=== PATIENT | female | born 1990 | race Native Hawaiian/Other Pacific Islander ===

== ENCOUNTER 2017-08-10 20:40 | Inpatient (IN) | payer OTHER ==
[2017-08-10] MEDS ORDERED: Iohexol 240 (50 ml) PO STA (21:23)
[2017-08-10] MEDS ORDERED: Sodium Chloride 0.9% 1,000 ML IV ONE (21:23)
[2017-08-10 21:30] LABS: SQUAMOUS EPITHIAL 5 /hpf (0-5); URINE BACTERIA RARE (<OCC); URINE BILIRUBIN NEGATIVE (NEGATIVE); URINE BLOOD 2+ (NEGATIVE); URINE CLARITY Clear (Clear); URINE COLOR Yellow (YELLOW); URINE GLUCOSE (UA) NORMAL (Normal); URINE LEUKOCYTE ESTERASE NEG Leu/uL (Negative); URINE PROTEIN NEGATIVE (NEGATIVE); URINE UROBILINOGEN NORMAL mg/dL (0.2-1.0)
[2017-08-10 21:32] LABS: HCG,QUALITATIVE URINE NEGATIVE (NEGATIVE)
[2017-08-10] MEDS ORDERED: Sodium Chloride 0.9% 1,000 ML ONE (21:53)
[2017-08-10] MEDS ORDERED: Iohexol 240 (50 ml) ONE (21:53)
[2017-08-10 21:55] LABS: BASO % 0.4 % (0.0-2.0); EOS # 0.1 K/uL (0.0-0.7); EOS % 1.4 % (0.0-4.0); HEMOGLOBIN 13.1 g/dL (11.0-16.0); LYMPH # 2.5 K/uL (1.0-4.3); LYMPH % 33.3 % (20.0-40.0); MEAN CELL VOLUME 90.8 fL (81.0-99.0); MEAN CORPUSCULAR HGB CONC 34.1 g/dL (33.0-37.0); MONO # 0.6 K/uL (0.0-0.8); MONO % 7.3 % (0.0-10.0); NEUT # 4.4 K/uL (1.8-7.0); NEUT % 57.6 % (50.0-75.0); RBC 4.22 Mil/uL (3.80-5.20); RED CELL DISTRIBUTION WIDTH 12.7 % (11.5-14.5); WHITE BLOOD COUNT 7.6 K/uL (4.8-10.8)
[2017-08-10] MEDS ORDERED: Iodixanol 320 MG/ML 100 ML BOTTLE IV ONE (21:57)
--- NOTE | 2017-08-10 22:03 | C.PDOC ---
History Of Present Illness 27 year old female presents to the ED for evaluation of mid-abdominal pain which began earlier today. Patient describes her pain is sharp and constant in nature. Patient was able to eat lunch normally. Patient took some Tylenol and had some tea without relief. She states her pain has become intense and it hurts to move/walk, so she presents for further evaluation. She denies fever, chills, nausea, vomiting, changes in urinary/bowel habits. Time Seen by Provider: 08/10/17 21:18 Chief Complaint (Nursing): Abdominal Pain History Per: Patient History/Exam Limitations: no limitations Onset/Duration Of Symptoms: Hrs, Other (constant ) Current Symptoms Are (Timing): Still Present Location Of Pain/Discomfort: Other (mid-abdomen ) Radiation Of Pain To:: None Quality Of Discomfort: Sharp, "Pain" Associated Symptoms: denies: Fever, Chills, Nausea, Vomiting, Urinary Symptoms Additional History Per: Patient Abnormal Vaginal Bleeding: No Past Medical History Reviewed: Historical Data, Nursing Documentation, Vital Signs Vital Signs: Last Vital Signs Temp 97.7 F 08/10/17 21:06 Pulse 68 08/10/17 21:06 Resp 20 08/10/17 21:06 BP 115/77 08/10/17 21:06 Pulse Ox 100 08/10/17 22:06 - Medical History PMH: No Chronic Diseases Surgical History: No Surg Hx Family History: States: Unknown Family Hx - Social History Hx Alcohol Use: No Hx Substance Use: No - Immunization History Hx Tetanus Toxoid Vaccination: No Hx Influenza Vaccination: Yes Hx Pneumococcal Vaccination: No Review Of Systems Constitutional: Negative for: Fever, Chills Gastrointestinal: Positive for: Abdominal Pain. Negative for: Nausea, Vomiting Genitourinary: Negative for: Dysuria, Hematuria Physical Exam - Physical Exam Appears: Non-toxic, No Acute Distress Skin: Normal Color, Warm, Dry Head: Atraumatic, Normacephalic Eye(s): bilateral: Normal Inspection Oral Mucosa: Moist Neck: Supple Chest: Symmetrical, No Deformity, No Tenderness Cardiovascular: Rhythm Regular, No Murmur Respiratory: Normal Breath Sounds, No Rales, No Rhonchi, No Wheezing Gastrointestinal/Abdominal: Bowel Sounds (active), Soft, Tenderness (to right lower periumbilical region ), No Guarding, No Rebound Extremity: Normal ROM, Capillary Refill (less than 2 seconds ) Neurological/Psych: Oriented x3, Normal Speech, Normal Cognition ED Course And Treatment - Laboratory Results Result Diagrams: 08/10/17 21:50 08/10/17 21:50 Lab Interpretation: No Acute Changes O2 Sat by Pulse Oximetry: 100 (on RA) Pulse Ox Interpretation: Normal Progress Note: Bloodwork, urinalysis, CT A/P ordered and reviewed. IV Fluids administered. Disposition - Disposition Disposition Time: 00:45 Condition: STABLE Forms: [facility] [facility] [employer] [facility] (Spanish) - Clinical Impression Clinical Impression: Abdominal pain - Scribe Statement The provider has reviewed the documentation as recorded by the Scribe (Eliza Tao) Provider Attestation: All medical record entries made by the Scribe were at my direction and personally dictated by me. I have reviewed the chart and agree that the record accurately reflects my personal performance of the history, physical exam, medical decision making, and the department course for this patient. I have also personally directed, reviewed, and agree with the discharge instructions and disposition. Physician Patient Turnover Patient Signed Over To: Elvin Mars Handoff Comments: pending CT results
[2017-08-10 22:13] LABS: ALB/GLOB RATIO 1.5 (1.0-2.1); ALBUMIN 4.3 g/dL (3.5-5.0); ALT/SGPT 17 U/L (9-52); AST/SGOT 40 U/L (14-36); BLOOD UREA NITROGEN 16 mg/dL (7-17); CALCIUM 8.1 mg/dl (8.6-10.4); GFR AFRICAN-AMERICAN > 60; GFR NON-AFRICAN AMERICAN > 60; LIPASE 61 U/L (23-300)
--- NOTE | 2017-08-11 01:25 | CT ---
EXAM: CT Abdomen and Pelvis With Intravenous Contrast CLINICAL HISTORY: 27 years old, female; Pain; Abdominal pain; Additional info: Abd pain TECHNIQUE: Axial computed tomography images of the abdomen and pelvis with intravenous contrast. All CT scans at this facility use one or more dose reduction techniques, viz.: automated exposure control; ma/kV adjustment per patient size (including targeted exams where dose is matched to indication; i.e. head); or iterative reconstruction technique. 594 images are submitted. Oral contrast was administered. Axial images are submitted in lung and soft tissue windows. Coronal and sagittal reformatted images were created and reviewed. Axial reformatted images were created and reviewed. CONTRAST: 100 mL of [id number] administered intravenously. COMPARISON: No relevant prior studies available. FINDINGS: Lung bases: Unremarkable. No mass. No consolidation. Mediastinum: Small hiatal hernia. ABDOMEN: Liver: Unremarkable. No mass. Gallbladder and bile ducts: Unremarkable. No ductal dilation. Pancreas: Unremarkable. No mass. No ductal dilation. Spleen: Unremarkable. No splenomegaly. Adrenals: Unremarkable. No mass. Kidneys and ureters: Unremarkable. No solid mass. No hydronephrosis. Stomach and bowel: Nonspecific gastric thickening likely due to under distention. Correlation with clinical data is recommended if gastritis is suspected. PELVIS: Appendix: The appendix demonstrates diffuse distention, consistent with acute appendicitis. The appendix measures 1.1 cm. no appendicoliths. Bladder: Unremarkable. Reproductive: Anteverted uterus. Bilateral ovarian follicles. ABDOMEN and PELVIS: Intraperitoneal space: Small amount of free pelvic fluid. No free air. Bones/joints: No acute fracture. No dislocation. Soft tissues: Asymmetric left breast tissue. Vasculature: Unremarkable. No abdominal aortic aneurysm. Lymph nodes: Multiple subcentimeter mesenteric and ileocolic lymph nodes. Findings are nonspecific but may represent mesenteric adenitis. IMPRESSION: 1. The appendix demonstrates diffuse distention, consistent with acute appendicitis. The appendix measures 1.1 cm. no appendicoliths. 2. Small amount of free pelvic fluid.
[2017-08-11] MEDS ORDERED: Piperacillin/Tazobact 3.375 gm 100 ML IVPB STA (01:33)
[2017-08-11] MEDS ORDERED: Piperacillin/Tazobact 3.375 gm 100 ML IVPB ONE (01:39)
[2017-08-11] MEDS ORDERED: metroNIDAZOLE IV 500 mg/100 ml 500 MG/100 ML BAG ONE (01:40)
[2017-08-11] MEDS ORDERED: metroNIDAZOLE IV 500 mg/100 ml 500 MG/100 ML BAG IVPB SCH (01:45)
[2017-08-11] MEDS ORDERED: metroNIDAZOLE IV 500 mg/100 ml 500 MG/100 ML BAG IVPB STA (01:50)
[2017-08-11] MEDS: Lactated Ringer's 1,000 ML IV SCH ×3 (03:13→22:13)
--- NOTE | 2017-08-11 06:02 | CP.PCM.HP ---
History of Present Illness - History of Present Illness History of Present Illness: CC: abdominal pain HPI: Patient is a 27 y/o female who presented with chirag-umbilical abdominal pain for the past 1 day. She described the pain as sharp and radiating to all quadrants of her abdomen. She denies having pain like this in the past. She denies associated n/v/f/c. She denies diarrhea or constipation. She states her LMP was July 25 and normal. She reports come relief of the pain with medication given to her in ER. PMH: denies PSH: denies Social: denies ETOH, tobacco, or drug use Present on Admission - Present on Admission Any Indicators Present on Admission: No Review of Systems - Review of Systems All systems: reviewed and no additional remarkable complaints except Review of Systems: unless stated in HPI Past Patient History - Infectious Disease Hx of Infectious Diseases: None - Past Medical History & Family History Past Medical History?: No - Past Social History Smoking Status: Never Smoked - MUSCULOSKELETAL/RHEUMATOLOGICAL Hx Falls: No - PSYCHIATRIC Hx Substance Use: No - SURGICAL HISTORY Hx Surgeries: No - ANESTHESIA Hx Anesthesia: No Meds Allergies/Adverse Reactions: Allergies Allergy/AdvReac Type Severity Reaction Status Date / Time No Known Allergies Allergy Verified 08/10/17 21:13 Physical Exam - Constitutional Appears: Non-toxic, No Acute Distress - Head Exam Head Exam: ATRAUMATIC, NORMOCEPHALIC - Eye Exam Eye Exam: EOMI, Normal appearance - ENT Exam ENT Exam: Mucous Membranes Moist - Respiratory Exam Respiratory Exam: NORMAL BREATHING PATTERN. absent: Respiratory Distress - Cardiovascular Exam Cardiovascular Exam: REGULAR RHYTHM. absent: Tachycardia - GI/Abdominal Exam GI & Abdominal Exam: Soft, Tenderness (RLA w/ deep palpation). absent: Distended, Guarding, Rebound, Rigid - Extremities Exam Extremities exam: Positive for: normal inspection. Negative for: calf tenderness - Neurological Exam Neurological exam: Alert, Oriented x3 - Psychiatric Exam Psychiatric exam: Normal Affect, Normal Mood - Skin Skin Exam: Dry, Normal Color, Warm Results - Vital Signs Recent Vital Signs: Last Vital Signs Temp 98.2 F 08/11/17 02:30 Pulse 54 L 08/11/17 02:30 Resp 20 08/11/17 02:30 BP 113/74 08/11/17 02:30 Pulse Ox 100 08/11/17 02:30 - Labs Result Diagrams: 08/10/17 21:50 08/10/17 21:50 Labs: Laboratory Results - last 24 hr 08/10/17 08/10/17 08/10/17 21:19 21:50 21:50 WBC 7.6 RBC 4.22 Hgb 13.1 Hct 38.3 MCV 90.8 MCH 31.0 MCHC 34.1 RDW 12.7 Plt Count 209 MPV 9.0 Neut % (Auto) 57.6 Lymph % (Auto) 33.3 [place] % (Auto) 7.3 Eos % (Auto) 1.4 Baso % (Auto) 0.4 Neut # (Auto) 4.4 Lymph # (Auto) 2.5 [place] # (Auto) 0.6 Eos # (Auto) 0.1 Baso # (Auto) 0.0 Sodium 138 Potassium 5.0 Chloride 101 Carbon Dioxide 26 Anion Gap 16 BUN 16 Creatinine 0.8 Est GFR ( Amer) > 60 Est GFR (Non-Af Amer) > 60 Random Glucose 71 Calcium 8.1 L Total Bilirubin 1.1 AST 40 H ALT 17 Alkaline Phosphatase 36 L Total Protein 7.3 Albumin 4.3 Globulin 2.9 Albumin/Globulin Ratio 1.5 Lipase 61 Urine Color Yellow Urine Clarity Clear Urine pH 5.0 Ur Specific [place] 1.017 Urine Protein Negative Urine Glucose (UA) Normal Urine Ketones Negative Urine Blood 2+ H Urine Nitrate Negative Urine Bilirubin Negative Urine Urobilinogen Normal Ur Leukocyte Esterase Neg Urine WBC (Auto) 2 Urine RBC (Auto) 1 Ur Squamous Epith Cells 5 Urine Bacteria Rare Urine HCG, Qual Negative - Imaging and Cardiology CT scan - abdomen Status: Image reviewed by me, Report reviewed by me (dilated 1/1cm appendix with mild inflammatory changes) Assessment & Plan - Assessment and Plan (Free Text) Assessment: 27 y/o female w/ abdominal pain and CT findings suggestive of acute appendicitis Plan: -plan for OR today -NPO -IVF -IV abx -pain medicine -zofran -ok to be OOB -SCDs -pending time of OR, patient could possibly be d/c'd this afternoon or early tomorrow morning -d/w Dr. Zack KIRBYrobby PGY3
[2017-08-11] MEDS: Piperacillin/Tazobact 3.375 GM in Sodium Chloride 100 ML IVPB SCH ×4 (07:35→20:39)
[2017-08-11] MEDS ORDERED: Lactated Ringer's 1,000 ML IV ONE ×2 (08:00→10:00)
[2017-08-11] MEDS ORDERED: Midazolam 2 MG/2 ML VIAL ONE (08:09)
[2017-08-11] MEDS ORDERED: Propofol 10 mg/ml Inj (20 ML) ONE (08:09)
[2017-08-11] MEDS ORDERED: Rocuronium 10 mg/ml (10 ml) ONE (09:02)
[2017-08-11] MEDS ORDERED: Succinylcholine Chloride 20 mg/ml Syr (5 ml) IV ONE (09:02)
--- NOTE | 2017-08-11 09:31 | PCM.SURG1 ---
Surgeon's Initial Post Op Note - Surgeon's Notes Surgeon: Dr. Dixon Aerospace Engineer: Dr. Casillas PGY2 Type of Anesthesia: General Endo Pre-Operative Diagnosis: Acute appendicitis Operative Findings: See operative dictation Post-Operative Diagnosis: Acute appendicitis Operation Performed: Laparoscopic appendectomy Specimen/Specimens Removed: Appendix Estimated Blood Loss: EBL {In ML}: 10 Blood Products Given: N/A Drains Used: No Drains Post-Op Condition: Good Date of Surgery/Procedure: 08/11/17 Time of Surgery/Procedure: :
[2017-08-11] MEDS: HYDROmorphone 0.5 mg/0.5 ml ISec IVP PRN ×2 (10:05→10:19)
--- NOTE | 2017-08-11 22:35 | OP ---
PROCEDURE DATE: 08/11/2017 SURGEON: Justo Dixon MD CARPENTER: . ANESTHESIA: General. PREOPERATIVE DIAGNOSIS: Acute appendicitis. POSTOPERATIVE DIAGNOSIS: Acute appendicitis. PROCEDURE: Laparoscopic appendectomy. DESCRIPTION OF OPERATION: With the patient in the supine position under adequate general anesthesia, the abdomen was prepped and draped in the usual manner. Veress needle puncture was performed at the umbilicus with insufflation to 15 cm of water pressure of CO2, and a 5-mm laparoscopic trocar was inserted via an infraumbilical incision. Under direct vision, an additional 5-mm trocar was inserted in the left lower quadrant, and a 12-mm trocar was inserted in the suprapubic midline. The appendix was identified. It was thickened and indurated and appeared acutely inflamed. The appendix was gently grasped and elevated and free from some overlying loops of small bowel. The mesoappendix was then dissected and divided with an Endo AMY stapler. The appendix itself was then divided with the second pass of the Endo AMY stapler. The stump was examined for hemostasis. The appendix was placed in a specimen retrieval bag and removed via the 12-mm port site. The right lower quadrant was suctioned. The pneumoperitoneum was released, and the trocars were removed. The 12-mm port site was closed with a [id number] fascial suture of 0 Vicryl. All incisions were closed with 4-0 Monocryl subcuticular sutures and Dermabond. The patient tolerated the procedure well and transferred to recovery room in stable condition. Estimated blood loss for the procedure was 10 mL. Justo Dixon MD
[2017-08-11] MEDS: Oxycodone/Acetaminophen 5/325 mg Tab PO PRN (22:54)
[2017-08-12] MEDS: Piperacillin/Tazobact 3.375 GM in Sodium Chloride 100 ML IVPB SCH ×2 (01:33→08:00)
[2017-08-12] MEDS: Oxycodone/Acetaminophen 5/325 mg Tab PO PRN (05:56)
[2017-08-12] MEDS: Lactated Ringer's 1,000 ML IV SCH ×2 (07:05→08:00)
--- NOTE | 2017-08-12 07:45 | CP.PCM.DIS ---
Provider - Provider Date of Admission: 08/11/17 01:41 Attending physician: Justo Dixon MD Time Spent in preparation of Discharge (in minutes): 45 Diagnosis - Discharge Diagnosis (1) Appendicitis Status: Resolved Hospital Course - Lab Results Lab Results: Most Recent Lab Values WBC 7.6 K/uL (4.8-10.8) 08/10/17 21:50 RBC 4.22 Mil/uL (3.80-5.20) 08/10/17 21:50 Hgb 13.1 g/dL (11.0-16.0) 08/10/17 21:50 Hct 38.3 % (34.0-47.0) 08/10/17 21:50 MCV 90.8 fL (81.0-99.0) 08/10/17 21:50 MCH 31.0 pg (27.0-31.0) 08/10/17 21:50 MCHC 34.1 g/dL (33.0-37.0) 08/10/17 21:50 RDW 12.7 % (11.5-14.5) 08/10/17 21:50 Plt Count 209 K/uL (130-400) 08/10/17 21:50 MPV 9.0 fL (7.2-11.7) 08/10/17 21:50 Neut % (Auto) 57.6 % (50.0-75.0) 08/10/17 21:50 Lymph % (Auto) 33.3 % (20.0-40.0) 08/10/17 21:50 [place] % (Auto) 7.3 % (0.0-10.0) 08/10/17 21:50 Eos % (Auto) 1.4 % (0.0-4.0) 08/10/17 21:50 Baso % (Auto) 0.4 % (0.0-2.0) 08/10/17 21:50 Neut # (Auto) 4.4 K/uL (1.8-7.0) 08/10/17 21:50 Lymph # (Auto) 2.5 K/uL (1.0-4.3) 08/10/17 21:50 [place] # (Auto) 0.6 K/uL (0.0-0.8) 05/30/18 21:50 Eos # (Auto) 0.1 K/uL (0.0-0.7) 08/10/17 21:50 Baso # (Auto) 0.0 K/uL (0.0-0.2) 08/10/17 21:50 Sodium 138 mmol/L (132-148) 08/10/17 21:50 Potassium 5.0 mmol/L (3.6-5.2) 08/10/17 21:50 Chloride 101 mmol/L (98-107) 08/10/17 21:50 Carbon Dioxide 26 mmol/L (22-30) 08/10/17 21:50 Anion Gap 16 (10-20) 08/10/17 21:50 BUN 16 mg/dL (7-17) 08/10/17 21:50 Creatinine 0.8 mg/dL (0.7-1.2) 08/10/17 21:50 Est GFR ( Amer) > 60 08/10/17 21:50 Est GFR (Non-Af Amer) > 60 08/10/17 21:50 Random Glucose 71 mg/dL (65-105) 08/10/17 21:50 Calcium 8.1 mg/dl (8.6-10.4) L 08/10/17 21:50 Total Bilirubin 1.1 mg/dL (0.2-1.3) 08/10/17 21:50 AST 40 U/L (14-36) H 08/10/17 21:50 ALT 17 U/L (9-52) 08/10/17 21:50 Alkaline Phosphatase 36 U/L (38-126) L 08/10/17 21:50 Total Protein 7.3 g/dL (6.3-8.3) 08/10/17 21:50 Albumin 4.3 g/dL (3.5-5.0) 08/10/17 21:50 Globulin 2.9 gm/dL (2.2-3.9) 08/10/17 21:50 Albumin/Globulin Ratio 1.5 (1.0-2.1) 08/10/17 21:50 Lipase 61 U/L (23-300) 08/10/17 21:50 Urine Color Yellow (YELLOW) 08/10/17 21:19 Urine Clarity Clear (Clear) 08/10/17 21:19 Urine pH 5.0 (5.0-8.0) 08/10/17 21:19 Ur Specific [place] 1.017 (1.003-1.030) 08/10/17 21:19 Urine Protein Negative mg/dL (NEGATIVE) 08/10/17 21:19 Urine Glucose (UA) Normal mg/dL (Normal) 08/10/17 21:19 Urine Ketones Negative mg/dL (NEGATIVE) 08/10/17 21:19 Urine Blood 2+ (NEGATIVE) H 08/10/17 21:19 Urine Nitrate Negative (NEGATIVE) 08/10/17 21:19 Urine Bilirubin Negative (NEGATIVE) 08/10/17 21:19 Urine Urobilinogen Normal mg/dL (0.2-1.0) 08/10/17 21:19 Ur Leukocyte Esterase Neg [place]/uL (Negative) 08/10/17 21:19 Urine WBC (Auto) 2 /hpf (0-5) 08/10/17 21:19 Urine RBC (Auto) 1 /hpf (0-3) 08/10/17 21:19 Ur Squamous Epith Cells 5 /hpf (0-5) 08/10/17 21:19 Urine Bacteria Rare (<OCC) 08/10/17 21:19 Urine HCG, Qual Negative (NEGATIVE) 08/10/17 21:19 - Hospital Course Hospital Course: This 27F was admitted to the hospital with right lower abdominal pain on . She was diagnosed with an acute appendicitis. She was taken to the OR for a laparoscopic appendectomy later that morning. She had an uneventful recover and is clear for discharge home. Discharge Exam - Head Exam Head Exam: ATRAUMATIC, NORMOCEPHALIC - Eye Exam Eye Exam: EOMI, Normal appearance - Respiratory Exam Respiratory Exam: NORMAL BREATHING PATTERN, UNREMARKABLE - Cardiovascular Exam Cardiovascular Exam: +S1, +S2 - GI/Abdominal Exam GI & Abdominal Exam: Soft. absent: Tenderness Additional comments: Surgical glue in place incisions well approximated non draining non tender - Neurological Exam Neurological exam: Alert, Oriented x3 - Psychiatric Exam Psychiatric exam: Normal Affect, Normal Mood - Skin Skin Exam: Dry, Intact Discharge Plan - Follow Up Plan Condition: STABLE Disposition: HOME/ ROUTINE Instructions: Acute Abdominal Pain (DC), Acute Abdominal Pain (GEN), Appendectomy, Laparoscopic Surgery, Appendectomy, Laparoscopic Surgery (DC) Additional Instructions: You may shower tomorrow however no soaking no hot tubs no swimming pools. No heavy lifting or core excersizes for a minimum of 4 weeks. If you develop any new or concerning symptoms please contact you PCP, Dr. Dixon or go to the ED. You have dissolvable stitches and surgical glue, do not pick at the glue it will eventually come off in the shower. For pain take motrin over the counter as directed on bottle, if it is not enough you may take tylenol in addition per the directions on the bottle.
[2017-08-12 08:14] VITALS: BP 113/72; PULSE 60; RESP 18; TEMP 98.3; O2SAT 100
[2017-08-13] MEDS ORDERED: Pneumococcal 23-Valent Vaccine IM ONE (14:00)
== END 2017-08-12 10:25 | disposition home or self-care (01) | DRG 883 ==
LOC: C.ER 20:40 → C.6T 08-11 01:41 → C.9S 08-11 10:28 → C.5S 08-11 11:01
PROVIDERS: ADMIT Specialist; ATTEND Specialist
PROC: 0DTJ4ZZ Resection of Appendix, Percutaneous Endoscopic Approach (ICD-10-PCS; principal; 2017-08-11 12:45)
DX: K35.80 Unspecified acute appendicitis (principal)

== ENCOUNTER 2017-12-21 01:18 | Emergency (ER) | payer OTHER ==
--- NOTE | 2017-12-21 01:35 | C.PDOC ---
History Of Present Illness 27 yo female presents to the ED complaining of chest pain that started yesterday around 3:00 PM. Patient then tried to fall asleep, and states she felt better. She then awoke and went to work, where she developed chest tightness and pressure-like sensation. Patient notes that she momentarily felt diaphoretic. Also reports burning sensation in her chest as well. No SOB. On arrival patient is speaking in complete sentences. She denies any fever, chills, cough, nausea, vomiting, dizziness, or palpitations. Time Seen by Provider: 12/21/17 01:34 Chief Complaint (Nursing): Chest Pain History Per: Patient History/Exam Limitations: no limitations Onset/Duration Of Symptoms: Hrs Current Symptoms Are (Timing): Still Present Severity: Moderate Pain Scale Rating Of: 4 Quality: Burning, Tightness, Pressure Associated Symptoms: Diaphoresis Exacerbating Factors: None Recent travel outside of the [place]: No Past Medical History Reviewed: Historical Data, Nursing Documentation, Vital Signs Surgical History: No Surg Hx - [facility] Procedures RESECTION OF APPENDIX, PERCUTANEOUS ENDOSCOPIC APPROACH (08/11/17) Family History: States: Unknown Family Hx - Social History Hx Tobacco Use: No Hx Alcohol Use: No Hx Substance Use: No - Immunization History Hx Tetanus Toxoid Vaccination: No Hx Influenza Vaccination: Yes Hx Pneumococcal Vaccination: No Review Of Systems Constitutional: Negative for: Fever, Chills ENT: Negative for: Nose Congestion Cardiovascular: Positive for: Chest Pain (pressure-like and burning sensation). Negative for: Palpitations Respiratory: Negative for: Cough, Shortness of Breath Gastrointestinal: Negative for: Nausea, Vomiting Neurological: Negative for: Weakness, Headache, Dizziness Physical Exam - Physical Exam Appears: Non-toxic, No Acute Distress Skin: Warm, Dry Head: Normacephalic Eye(s): bilateral: Normal Inspection Oral Mucosa: Moist Neck: Trachea Midline, Supple Chest: Symmetrical, No Deformity, No Tenderness Cardiovascular: Rhythm Regular Respiratory: No Rales, No Rhonchi, No Wheezing Gastrointestinal/Abdominal: Bowel Sounds (active), Soft, No Tenderness, No Distention Extremity: Bilateral: Atraumatic, Normal Color And Temperature, Normal ROM Pulses: Left Dorsalis Pedis: Normal, Right Dorsalis Pedis: Normal Neurological/Psych: Oriented x3 ED Course And Treatment - Laboratory Results Result Diagrams: 12/21/17 02:46 12/21/17 02:46 ECG: Interpreted By Me, Viewed By Me ECG Rhythm: Sinus Rhythm (58), Nonspecific Changes (occ pac's) O2 Sat by Pulse Oximetry: 98 (RA) Pulse Ox Interpretation: Normal Progress Note: Administered PO aspirin and IV Pepcid. Blood work and urine sent. EKG ordered and reviewed. Patient will be observed on threat monitoring analyst in the ED. Reevaluation Time: 05:22 Disposition Counseled Patient/Family Regarding: Studies Performed, Diagnosis, Need For Followup - Disposition Referrals: Stephane Mohr MD [Staff Provider] - Disposition: HOME/ ROUTINE Disposition Time: 01:45 Condition: FAIR Additional Instructions: Please return if symptoms recur Instructions: Chest Pain (DC) Forms: [employer] (Thai) - Clinical Impression Clinical Impression: Chest pain - Scribe Statement The provider has reviewed the documentation as recorded by the Scribe (Snoja Staley) Provider Attestation: All medical record entries made by the Scribe were at my direction and personally dictated by me. I have reviewed the chart and agree that the record accurately reflects my personal performance of the history, physical exam, medical decision making, and the department course for this patient. I have also personally directed, reviewed, and agree with the discharge instructions and disposition.
[2017-12-21] MEDS ORDERED: Aspirin 325 mg EC Tablets PO STA (02:23)
[2017-12-21 02:50] LABS: BASO % 0.5 % (0.0-2.0); EOS # 0.1 K/uL (0.0-0.7); EOS % 0.9 % (0.0-4.0); HEMOGLOBIN 12.7 g/dL (11.0-16.0); LYMPH # 2.1 K/uL (1.0-4.3); MEAN CELL VOLUME 91.3 fL (81.0-99.0); MEAN CORPUSCULAR HEMOGLOBIN 30.5 pg (27.0-31.0); MEAN CORPUSCULAR HGB CONC 33.4 g/dL (33.0-37.0); MONO # 0.4 K/uL (0.0-0.8); MONO % 5.4 % (0.0-10.0); NEUT # 5.4 K/uL (1.8-7.0); NEUT % 67.2 % (50.0-75.0); RBC 4.17 Mil/uL (3.80-5.20); RED CELL DISTRIBUTION WIDTH 12.7 % (11.5-14.5)
[2017-12-21 03:05] LABS: ALB/GLOB RATIO 1.7 (1.0-2.1); ALBUMIN 4.1 g/dL (3.5-5.0); ALT/SGPT 27 U/L (9-52); AST/SGOT 30 U/L (14-36); BLOOD UREA NITROGEN 12 mg/dL (7-17); CALCIUM 8.9 mg/dl (8.6-10.4); GFR NON-AFRICAN AMERICAN > 60; LIPASE 30 U/L (23-300)
[2017-12-21 03:11] LABS: PROTHROMBIN TIME 10.4 SECONDS (9.7-12.2)
[2017-12-21 03:17] LABS: B-TYPE NATRIURETIC PEPTIDE 253 pg/mL (0-450)
[2017-12-21 03:29] VITALS: PULSE 54
[2017-12-21] MEDS ORDERED: Sodium Chloride 0.9% 1,000 ML IV ONE (04:05)
[2017-12-21] MEDS ORDERED: Sodium Chloride 0.9% 1,000 ML ONE (04:30)
[2017-12-21 05:33] VITALS: BP 115/76; RESP 14; TEMP 98; O2SAT 100
--- NOTE | 2017-12-23 15:02 | CARD ---
APPROVED REPORT Date of service: 12/21/2017 EKG Measurement Heart [id number] <Conclusion> Sinus bradycardia with premature atrial complexes Otherwise normal ECG
== END 2017-12-21 05:33 | disposition home or self-care (01) ==
LOC: C.ER 01:18
DX: R07.9 Chest pain, unspecified (principal)
CPT/HCPCS: 80053; 83690; 83880; 84484; 84703; 85025; 85610; 85730; 93005; 96361; 96374; 99285; J7030

== ENCOUNTER 2018-02-04 23:17 | Emergency (ER) | payer OTHER ==
[2018-02-04 23:34] VITALS: BP 105/68; PULSE 81; RESP 19; TEMP 98; O2SAT 97
--- NOTE | 2018-02-04 23:51 | C.PDOC ---
History Of Present Illness 27 year old female presents to ED with complaints of pain to buttocks on right side after she slipped and fell when getting out of bathtub. Patient reports she is 8 weeks and had no injury to abdomen or any bleeding. She did not take any medicine and came straight to ED. - HPI Time Seen by Provider: 02/04/18 23:37 Chief Complaint (Nursing): Trauma History Per: Patient History/Exam Limitations: no limitations Onset/Duration Of Symptoms: Sudden Onset Location Of Injury: Right: Buttock Past Medical History Reviewed: Historical Data, Nursing Documentation, Vital Signs Vital Signs: Last Vital Signs Temp 98 F 02/04/18 23:21 Pulse 81 02/04/18 23:21 Resp 19 02/04/18 23:21 BP 105/68 02/04/18 23:21 Pulse Ox 97 02/04/18 23:21 - Medical History PMH: No Chronic Diseases Surgical History: Appendectomy - [facility] Procedures RESECTION OF APPENDIX, PERCUTANEOUS ENDOSCOPIC APPROACH (08/11/17) Family History: States: Unknown Family Hx - Social History Hx Tobacco Use: No Hx Alcohol Use: No Hx Substance Use: No - Immunization History Hx Tetanus Toxoid Vaccination: No Hx Influenza Vaccination: Yes Hx Pneumococcal Vaccination: No Review Of Systems Except As Marked, All Systems Reviewed And Found Negative. Musculoskeletal: Positive for: Back Pain (buttock) Physical Exam - Physical Exam Appears: Non-toxic, No Acute Distress Skin: Warm, Dry Head: Atraumatic, Normacephalic Eye(s): bilateral: Normal Inspection, EOMI Neck: Normal ROM Cardiovascular: Rhythm Regular Respiratory: Normal Breath Sounds Gastrointestinal/Abdominal: Soft, No Tenderness, No Distention, No Guarding Back: No Vertebral Tenderness, No Paraspinal Tenderness, Other (right buttocks mildly tender and sore to palpation, no ecchymosis or swelling) Extremity: Bilateral: Atraumatic, Normal ROM Neurological/Psych: Oriented x3, Normal Speech Gait: Steady ED Course And Treatment O2 Sat by Pulse Oximetry: 97 Medical Decision Making Medical Decision Making: Impression: Buttock injury from fall Plan: UA to check for blood. Offer Tylenol for pain but patient declined. Progress: UA shows no blood Patient appears well and in no acute distress. She is ambulatory without signs of discomfort. Based on history and exam, no immediate concern for miscarriage or injury to fetus. Recommend rest, ice or heat to area and can take Tylenol. Patient can follow up with OB or return to ED if develop any pelvic pain or bleeding. Disposition Counseled Patient/Family Regarding: Diagnosis, Need For Followup - Disposition Disposition: HOME/ ROUTINE Disposition Time: 00:08 Condition: STABLE Additional Instructions: Take Tylenol for any pain. Can apply heat or ice to area. Follow up with your OB or return to ED if develop any bleeding, pelvic pain or o ther concern Instructions: Coccyx Injury (DC) Forms: [employer] (Cam[place]onian) - POA Present On Arrival: Falls Or Trauma - Clinical Impression Clinical Impression: Contusion, buttock, Fall, accidental,
[2018-02-05] LABS: HCG,QUALITATIVE URINE POSITIVE (NEGATIVE)
[2018-02-05 00:03] LABS: SQUAMOUS EPITHIAL 11 /hpf (0-5); URINE BILIRUBIN NEGATIVE (NEGATIVE); URINE BLOOD NEGATIVE (NEGATIVE); URINE CLARITY Clear (Clear); URINE COLOR Yellow (YELLOW); URINE GLUCOSE (UA) NORMAL (Normal); URINE LEUKOCYTE ESTERASE TRACE Leu/uL (Negative); URINE PROTEIN NEGATIVE (NEGATIVE)
== END 2018-02-05 00:29 | disposition home or self-care (01) ==
LOC: C.ER 23:17
DX: S30.0XXA Contusion of lower back and pelvis, initial encounter (principal); W18.2XXA Fall in (into) shower or empty bathtub, initial encounter; Y93.E1 Activity, personal bathing and showering; O9A.211 Injury, poisoning and certain other consequences of external causes complicating pregnancy, first trimester; Z3A.08 8 weeks gestation of pregnancy

== ENCOUNTER 2018-05-09 01:09 | Emergency (ER) | payer OTHER ==
[2018-05-09 01:37] VITALS: BMI 27.0
[2018-05-09 02:02] LABS: SQUAMOUS EPITHIAL 13 /hpf (0-5); URINE BACTERIA OCC (<OCC); URINE BILIRUBIN NEGATIVE (NEGATIVE); URINE CLARITY Hazy (Clear); URINE COLOR Yellow (YELLOW); URINE GLUCOSE (UA) NORMAL (Normal); URINE LEUKOCYTE ESTERASE NEG Leu/uL (Negative); URINE PROTEIN NEGATIVE (NEGATIVE); URINE UROBILINOGEN NORMAL mg/dL (0.2-1.0)
[2018-05-09 02:03] LABS: URINE BLOOD NEGATIVE (NEGATIVE)
[2018-05-09 02:57] LABS: BASO % 0.3 % (0.0-2.0); EOS # 0.1 K/uL (0.0-0.7); EOS % 0.9 % (0.0-4.0); HEMOGLOBIN 11.3 g/dL (11.0-16.0); LYMPH # 2.6 K/uL (1.0-4.3); LYMPH % 21.4 % (20.0-40.0); MEAN CORPUSCULAR HEMOGLOBIN 31.9 pg (27.0-31.0); MEAN CORPUSCULAR HGB CONC 33.2 g/dL (33.0-37.0); MEAN PLATELET VOLUME 10.2 fL (7.2-11.7); MONO # 0.8 K/uL (0.0-0.8); MONO % 6.4 % (0.0-10.0); NEUT # 8.7 K/uL (1.8-7.0); RBC 3.53 Mil/uL (3.80-5.20); RED CELL DISTRIBUTION WIDTH 14.4 % (11.5-14.5)
[2018-05-09 03:05] LABS: MEAN CELL VOLUME 96.1 fL (81.0-99.0); WHITE BLOOD COUNT 12.3 K/uL (4.8-10.8)
[2018-05-09 09:29] VITALS: BP 93/64; PULSE 87
== END 2018-05-09 05:04 | disposition home or self-care (01) ==
LOC: C.EROB 01:09
DX: O46.92 Antepartum hemorrhage, unspecified, second trimester (principal); Z3A.23 23 weeks gestation of pregnancy